=== PATIENT | female | born 1960 | race Caucasian/White ===

== ENCOUNTER → 2018-01-16 09:57 | Outpatient (CLI) | payer OTHER, SELFPAY ==
--- NOTE | 2018-01-16 09:57 | DT_ITS ---
This patient was seen during an EMR downtime January 09, 2018 - January 16, 2018. This patient may have a combination of paper and electronic documentation or all paper documentation. All documentation is viewable within the e-chart portion of [facility] for each patient visit.
--- NOTE | 2018-01-16 10:28 | MRI_ITS ---
STUDY: MRI BRAIN WITH AND WITHOUT CONTRAST REASON FOR EXAM: Female, 57 years old. RT LIP HYPESTHESIA, EVALUATE CRAINIAL NERVE V, -- numbness rt lower jaw x 1 month;. TECHNIQUE: Standardized multiplanar fat and water weighted pulse sequences were obtained. 7 ml of Gadavist contrast material was administered intravenously for the contrast portion of the examination. COMPARISON: None. FINDINGS: Normal size of the ventricles and extra-axial spaces for the patient's age. Normal white matter tracts of the supratentorial brain. Normal bilateral basal ganglia. Normal thalami. There is no extra-axial fluid accumulation. Normal flow voids within the major intracranial circulation suggesting patency by spin echo criteria. Normal venous enhancement. There is no enhancing intra-axial or extra-axial abnormality. Normal sella turcica, pituitary gland, infundibular stalk, optic chiasm and hypothalamus. Normal tectal plate and pineal gland. Normal midbrain, maci and medulla. Normal cerebellum. Normal basal cisterns. Normal bilateral temporal bones. Normal bilateral internal auditory canals. No demonstrated orbital abnormality, within the constraints of a routine brain study. Normal visualized paranasal sinuses. Evaluation of the brainstem and trigeminal nerve is unremarkable. The internal auditory canals are unremarkable. There is no evidence of enhancing lesions. There are multiple posterior lesion with the largest the left frontal region measuring up to 2.2 cm . Normal visualized soft tissue structures. Normal visualized upper cervical spine. MRI/Brain W/WO Contrast IMPRESSION: No acute intracranial abnormality or masses. Multiple calvarial lesions. Neoplastic disease is not excluded. Further evaluation with bone scan can be obtained. N.B. : The above information has been verbally conveyed by Chris Desouza MD to Eric Abbie on 01/17/2018 10:36:07 (ET). Electronically Signed: Chris Desouza MD at 10:10 EDT Tel , Service support , N.B. : The above information has been verbally conveyed by Chris Desouza MD to Eric Leiva on 01/17/2018 10:36:07 (ET).
== END ==
PROVIDERS: Family Provider Family Medicine; PCP Family Medicine; Visit Provider Otolaryngology
DX: R20.1 Hypoesthesia of skin (principal)
CPT/HCPCS: 70553; A9585